=== PATIENT | female | born 1975 | race Caucasian/White ===

== ENCOUNTER 2021-05-01 10:33 | Outpatient (CLI) | payer BC ==
[2021-05-01 12:04] LABS: #Eosinphils 0.1 10x3/uL (0.0-0.5); #Monocytes 0.2 10x3/uL (0.0-1.1); #Neutrophils 4.2 10x3/uL (1.5-8.4); %Basophils 0.3 % (0.0-2.0); %Eosinophils 1.2 % (0.0-6.0); %Lymphocytes 20.8 % (18.0-47.0); %Monocytes 3.8 % (0.0-10.0); %Neutrophils 73.6 % (40.0-75.0); Mean Corpuscular HGB CONC 32.5 g/dL (32.0-36.0); Mean Corpuscular Hemoglobin 30.8 pg (27.0-33.0); Mean Corpuscular Volume 94.8 fl (81.6-98.3); Mean Platelet Volume 10.1 fl (7.4-10.4); Platelet Count 231 10x3/uL (150-450); Red Blood Cell (RBC) Count 4.22 10x6/uL (3.90-5.03); White Blood Cell (WBC) Count 5.8 10x3/uL (3.5-10.5)
[2021-05-01 13:10] LABS: Anion Gap 15 mmol/L (10-20); BUN (Urea Nitrogen) 9 mg/dL (7.0-18.7); Calc. Creatinine Clearance 0 mL/min (70-130); Calcium 9.7 mg/dL (7.8-10.44); Carbon Dioxide 27 mmol/L (22-29); Chloride 104 mmol/L (98-107); Glucose 108 mg/dL (70-105); Potassium 3.9 mmol/L (3.5-5.1); Sodium 142 mmol/L (136-145)
[2021-05-02 00:07] LABS: SARS-CoV-2 PCR by NAA Not Detected (NotDetected)
== END 2021-05-01 10:34 | disposition home or self-care (01) ==
LOC: LABBT 10:33
PROVIDERS: ATTEND Surgery
DX: Z01.812 Encounter for preprocedural laboratory examination (principal); K42.9 Umbilical hernia without obstruction or gangrene; Z20.822 Contact with and (suspected) exposure to COVID-19
CPT/HCPCS: 80048; 85025; U0003; U0005

== ENCOUNTER 2021-05-04 05:59 | Day surgery (SDC) | payer BC ==
[2021-04-28 11:19] VITALS: BMI 19.9
[2021-05-04] MEDS ORDERED: Fentanyl 250 MCG/5 ML VIAL ONE (06:19)
[2021-05-04] MEDS ORDERED: Midazolam HCl 2 mg/2 ml Vial ONE (06:19)
[2021-05-04] MEDS ORDERED: Bupivacaine 0.25% HCL 30 ML VIAL ONE (06:27)
[2021-05-04] MEDS ORDERED: Lidocaine 1% w/Epinephrine 1:100K 30 ML VIAL ONE (06:27)
[2021-05-04] MEDS ORDERED: ceFAZolin 2 GM/Dextrose 50 ML IVPB ONE (07:17)
[2021-05-04] MEDS ORDERED: PROPOFOL 200 MG/20 ML VIAL ONE (07:37)
[2021-05-04] MEDS ORDERED: Dexamethasone 20 MG/5 ML VIAL ONE (07:37)
[2021-05-04] MEDS ORDERED: Metoclopramide HCl 10 MG/2 ML VIAL ONE (07:37)
[2021-05-04] MEDS ORDERED: Ondansetron PF 4 MG/2 ML Vial ONE ×2 (07:37→09:42)
[2021-05-04] MEDS ORDERED: Lidocaine 1% PF 5 ML VIAL ONE (07:37)
[2021-05-04] MEDS ORDERED: ePHEDrine 50 MG/ML VIAL ONE (07:37)
[2021-05-04] MEDS ORDERED: Ketorolac Tromethamine 30 MG/ML VIAL ONE (07:37)
[2021-05-04] MEDS ORDERED: Morphine 4 MG/ML VIAL ONE (09:33)
[2021-05-04] MEDS ORDERED: traMADol HCl 50 MG TAB ONE (10:05)
== END 2021-05-04 10:50 | disposition home or self-care (01) ==
LOC: SDC 05:59
PROVIDERS: ATTEND Surgery
PROC: 0WUF0JZ Supplement Abdominal Wall with Synthetic Substitute, Open Approach (ICD-10-PCS; principal; 2021-05-04)
DX: K42.9 Umbilical hernia without obstruction or gangrene (principal); Z87.891 Personal history of nicotine dependence; Z88.5 Allergy status to narcotic agent
CPT/HCPCS: C1889; J0690; J1100; J1885; J2250; J2270; J2405; J2704; J2765; J3010; J3490; S0020

== ENCOUNTER 2023-08-10 12:44 | Outpatient (CLI) | payer BC | END 2023-08-10 12:45 | disposition home or self-care (01) | LOC: SCSMRI 12:44 | PROVIDERS: ATTEND Orthopaedic Surgery Hand Surgery | DX: S63.592A Other specified sprain of left wrist, initial encounter (principal); M67.432 Ganglion, left wrist; R93.7 Abnormal findings on diagnostic imaging of other parts of musculoskeletal system ==